=== PATIENT | male | born 1990 | race African-American/Black ===

== ENCOUNTER 2016-10-15 14:39 | Emergency (ER) | payer SELFPAY ==
[~2016-10-15] VITALS: Ht 177.8 cm; Wt 68.0 kg
[2016-10-15] MEDS ORDERED: IV NORMAL SALINE 1000ML BAG 1,000 ML IV ONE (15:00)
[2016-10-15 15:10] LABS: BASO % 1 % (0-3); EOS % 4 % (0-3); HEMATOCRIT 49.3 % (39.0-53.0); HEMOGLOBIN 16.6 g/dL (13.0-17.5); LYMPH # 1.5 x10^3/uL (1.0-4.8); LYMPH % 29 % (24-48); MEAN CORPUSCULAR HEMOGLOBIN 32 pg (25-35); MEAN CORPUSCULAR HGB CONC 34 g/dL (31-37); MEAN CORPUSCULAR VOLUME 95 fL (79-100); MONO % 12 % (0-9); NEUT % 55 % (31-73); PLATELET COUNT 239 x10^3/uL (140-400); RED BLOOD COUNT 5.19 x10^6/uL (4.30-5.70); RED CELL DISTRIBUTION WIDTH 13.6 % (11.5-14.5); WHITE BLOOD COUNT 5.2 x10^3/uL (4.0-11.0)
[2016-10-15] MEDS ORDERED: ONDANSETRON PF 4 MG/2 ML VIAL. IV ONE (15:15)
[2016-10-15] MEDS ORDERED: FAMOTIDINE 20 MG/2 ML VIAL IVP ONE (15:15)
[2016-10-15] MEDS ORDERED: KETOROLAC TROMETHAMINE 30 MG/ML INJ. IV ONE (15:15)
--- NOTE | 2016-10-15 15:20 | PHYS DOC ---
Past Medical History Past Medical History: No Pertinent History Past Surgical History: No Surgical History Alcohol Use: Rarely Drug Use: None Adult General Chief Complaint Chief Complaint: NAUSEA/VOMITING/DIARRHA HPI HPI Patient is a 26-year-old man who presents with Vomiting for 4 days and tiredness. Patient denies any diarrhea. Denies any hematemesis. Review of Systems Review of Systems Constitutional: Denies fever or chills [] Eyes: Denies change in visual acuity, redness, or eye pain [] HENT: Denies nasal congestion or sore throat [] Respiratory: Denies cough or shortness of breath [] Cardiovascular: No additional information not addressed in HPI [] GI: vomiting : Denies dysuria or hematuria [] Musculoskeletal: Denies back pain or joint pain [] Integument: Denies rash or skin lesions [] Neurologic: Denies headache, focal weakness or sensory changes [] Endocrine: Denies polyuria or polydipsia [] Current Medications Current Medications Current Medications Medications (Trade) Dose Ordered Sig/Bhavna Start Time Stop Time Status Last Admin Dose Admin Famotidine (Pepcid) 20 mg 1X ONCE 10/15/16 15:15 10/15/16 15:16 DC 10/15/16 15:27 20 MG Ketorolac Tromethamine (Toradol) 30 mg 1X ONCE 10/15/16 15:15 10/15/16 15:16 DC 10/15/16 15:27 30 MG Ondansetron HCl (Zofran) 4 mg 1X ONCE 10/15/16 15:15 10/15/16 15:16 DC 10/15/16 15:27 4 MG Sodium Chloride 1,000 ml @ 1,000 mls/hr 1X ONCE 10/15/16 15:00 10/15/16 15:59 DC 10/15/16 15:26 1,000 MLS/HR Allergies Allergies Allergies Coded Allergies Type Severity Reaction Last Updated Verified doxycycline Allergy Intermediate Nausea and Vomiting 04/23/14 Yes Physical Exam Physical Exam Constitutional: Well developed, well nourished, no acute distress, non-toxic appearance. [] HENT: Normocephalic, atraumatic, bilateral external ears normal, oropharynx moist, no oral exudates, nose normal. [] Eyes: PERRLA, EOMI, conjunctiva normal, no discharge. [] Neck: Normal range of motion, no tenderness, supple, no stridor. [] Cardiovascular:Heart rate regular rhythm, no murmur [] Lungs & Thorax: Bilateral breath sounds clear to auscultation [] Abdomen: Bowel sounds normal, soft, no tenderness, no masses, no pulsatile masses. [] Skin: Warm, dry, no erythema, no rash. [] Back: No tenderness, no CVA tenderness. [] Extremities: No tenderness, no cyanosis, no clubbing, ROM intact, no edema. [] Neurologic: Alert and oriented X 3, normal motor function, normal sensory function, no focal deficits noted. [] Psychologic: Affect normal, judgement normal, mood normal. [] Current Patient Data Vital Signs Vital Signs Date Time Temp Pulse Resp B/P (MAP) Pulse Ox O2 Delivery O2 Flow Rate FiO2 10/15/16 14:40 98.3 75 16 140/93 (109) 99 Room Air 98.3 Lab Values Laboratory Tests Test 10/15/16 15:00 10/15/16 16:38 White Blood Count 5.2 x10^3/uL (4.0-11.0) Red Blood Count 5.19 x10^6/uL (4.30-5.70) Hemoglobin 16.6 g/dL (13.0-17.5) Hematocrit 49.3 % (39.0-53.0) Mean Corpuscular Volume 95 fL (79-100) Mean Corpuscular Hemoglobin 32 pg (25-35) Mean Corpuscular Hemoglobin Concent 34 g/dL (31-37) Red Cell Distribution Width 13.6 % (11.5-14.5) Platelet Count 239 x10^3/uL (140-400) Neutrophils (%) (Auto) 55 % (31-73) Lymphocytes (%) (Auto) 29 % (24-48) Monocytes (%) (Auto) 12 % (0-9) H Eosinophils (%) (Auto) 4 % (0-3) H Basophils (%) (Auto) 1 % (0-3) Neutrophils # (Auto) 2.9 x10^3uL (1.8-7.7) Lymphocytes # (Auto) 1.5 x10^3/uL (1.0-4.8) Monocytes # (Auto) 0.6 x10^3/uL (0.0-1.1) Eosinophils # (Auto) 0.2 x10^3/uL (0.0-0.7) Basophils # (Auto) 0.0 x10^3/uL (0.0-0.2) Platelet Estimate Adequate (ADEQUATE) Large Platelets Occ Giant Platelets Occ Polychromasia Slight Ovalocytes Occ Sodium Level 137 mmol/L (136-145) Potassium Level 4.0 mmol/L (3.5-5.1) Chloride Level 99 mmol/L (98-107) Carbon Dioxide Level 28 mmol/L (21-32) Anion Gap 10 (6-14) Blood Urea Nitrogen 14 mg/dL (8-26) Creatinine 1.2 mg/dL (0.7-1.3) Estimated GFR (Cockcroft-Gault) 89.3 BUN/Creatinine Ratio 12 (6-20) Glucose Level 103 mg/dL (70-99) H Calcium Level 9.7 mg/dL (8.5-10.1) Total Bilirubin 0.7 mg/dL (0.2-1.0) Aspartate Amino Transferase (AST) 17 U/L (15-37) Alanine Aminotransferase (ALT) 15 U/L (16-63) L Alkaline Phosphatase 94 U/L (46-116) Creatine Kinase 99 U/L (39-308) Myoglobin 31 ng/mL (16-96) Total Protein 8.7 g/dL (6.4-8.2) H Albumin 4.4 g/dL (3.4-5.0) Albumin/Globulin Ratio 1.0 (1.0-1.7) Lipase 67 U/L (73-393) L Ethyl Alcohol Level < 10 mg/dL (0-10) Urine Opiates Screen Neg (NEG) Urine Methadone Screen Neg (NEG) Urine Barbiturates Neg (NEG) Urine Phencyclidine Screen Neg (NEG) Urine Amphetamine/Methamphetamine Neg (NEG) Urine Benzodiazepines Screen Pos (NEG) Urine Cocaine Screen Pos (NEG) Urine Cannabinoids Screen Pos (NEG) Urine Ethyl Alcohol Neg (NEG) Laboratory Tests 10/15/16 15:00 Laboratory Tests 10/15/16 15:00 EKG EKG [] Radiology/Procedures Radiology/Procedures [] Course & Med Decision Making Course & Med Decision Making Pertinent Labs and Imaging studies reviewed. (See chart for details) This is a 26-year-old male who presents with nausea and fatigue for 4 days. CBC CMP lipase with no acute findings. Drug screen positive for benzodiazepine cocaine and marijuana. Patient was discharged with instructions to follow-up with his own doctor. Recommended help for drug abuse. Discharged with Zofran. Soto Disclaimer Brittany Disclaimer This electronic medical record was generated, in whole or in part, using a voice recognition dictation system. Departure Departure Impression: Primary Impression: Nausea and vomiting Additional Impression: Drug abuse Disposition: 01 HOME, SELF-CARE Condition: STABLE Referrals: NO PCP (PCP) follow up with [facility] for drug abuse Patient Instructions: Drug Abuse, FAQs, Nausea and Vomiting Additional Instructions: You were seen for nausea and vomiting and fatigue. Urine tox screen is positive for multiple medications including benzodiazepines cocaine and marijuana. This can cause is some your symptoms. Consider getting help for drug use. Follow-up with your doctor or [facility] for drug problem. Scripts Ondansetron (ZOFRAN ODT) 4 Mg Tab.rapdis 1 TAB SL Q8HRS, #15 TAB Prov: SHAKIRA SANTOYO APRN 10/15/16 Problem Qualifiers Primary Impression: Nausea and vomiting Vomiting type: unspecified Vomiting Intractability: unspecified Qualified Codes: R11.2 - Nausea with vomiting, unspecified SHAKIRA SANTOYO APRN Oct 15, 2016 15:20
[2016-10-15 15:24] LABS: CALCIUM 9.7 mg/dL (8.5-10.1); CREATININE 1.2 mg/dL (0.7-1.3); GFR 89.3
[2016-10-15 15:37] LABS: ALBUMIN 4.4 g/dL (3.4-5.0); TOTAL BILIRUBIN 0.7 mg/dL (0.2-1.0); TOTAL PROTEIN 8.7 g/dL (6.4-8.2)
[2016-10-15 16:46] LABS: BILIRUBIN,URINE SMALL (NEG); GLUCOSE,URINE NEGATIVE (NEG); NITRITE,URINE NEGATIVE (NEG); PH,URINE 6.5; PROTEIN,URINE 30 mg/dL (NEG-TRACE)
[2016-10-15 16:50] VITALS: BP 112/66
[2016-10-15 16:52] LABS: BARBITURATES NEG (NEG); BENZODIAZEPINES POS (NEG); CANNABINOIDS POS (NEG); COCAINE POS (NEG); METHADONE NEG (NEG); OPIATES NEG (NEG); PHENCYCLIDINE NEG (NEG)
[2016-10-15 16:54] LABS: OVALOCYTES OCC; PLT ESTIMATE ADEQUATE (ADEQUATE); POLYCHROMASIA SLIGHT
[2016-10-15] MEDS ORDERED: ONDA4TAB10 SL (17:09)
[2016-10-15 17:23] LABS: SQUAMOUS EPITHELIAL CELL,UR OCC /LPF; WBC,URINE OCC /HPF (0-4)
[2016-10-15 17:25] LABS: RBC,URINE 0 /HPF (0-2)
[2016-10-15 17:26] LABS: BACTERIA,URINE FEW /HPF (0-FEW)
== END 2016-10-15 17:20 | disposition home or self-care (01) ==
LOC: ER 14:39
DX: R11.2 Nausea with vomiting, unspecified (principal); F14.10 Cocaine abuse, uncomplicated; F19.10 Other psychoactive substance abuse, uncomplicated; F12.10 Cannabis abuse, uncomplicated; Z88.1 Allergy status to other antibiotic agents
CPT/HCPCS: 36415; 80053; 80305; 80320; 81001; 82550; 83690; 83874; 85007; 85027; 96361; 96374; 96375; 99284; J1885; J2405; J7030; S0028; G0480; G0481

== ENCOUNTER 2017-01-19 13:23 | Emergency (ER) | payer SELFPAY ==
[~2017-01-19] VITALS: Ht 177.8 cm; Wt 68.0 kg
[~2017-01-19 13:23] MED LIST: ONDA4TAB10 SL
[2017-01-19 13:29] VITALS: BP 122/58
--- NOTE | 2017-01-19 14:02 | PHYS DOC ---
Past Medical History Past Medical History: No Pertinent History Past Surgical History: No Surgical History Alcohol Use: Occasionally Drug Use: Marijuana Adult General Chief Complaint Chief Complaint: SORE THROAT HPI HPI Patient is a 26 year old AA male presents with sore throat, lymphadenopathy, for 5 days. Patient denies fever, chills, dysphagia, trismus, drooling and hoarseness. No Review of Systems Review of Systems Review of symptoms as per history of present illness. All other review symptoms are negative. Allergies Allergies Allergies Coded Allergies Type Severity Reaction Last Updated Verified doxycycline Allergy Intermediate Nausea and Vomiting 01/19/17 Yes Physical Exam Physical Exam I Gen.: No acute distress HENT: Normocephalic H medical using good shape and position, nose midline, mouth , moist mucous membranes, posterior oropharynx, tonsils 2+, with cellulitis and foul-smelling breath. No discrete abscess or peritonsillar exudate. Uvula midline. No drooling trismus or hoarseness. Neck: supple, submandibular lymphadenopathy. Chest: Respirations nonlabored, breath sounds clear. Extremities, no deformities Skin: Appropriate for ethnicity, no rash appreciated. Neurologic: Spontaneous coordinated movement of all 4 extremities, good muscle tone. Current Patient Data Vital Signs Vital Signs Date Time Temp Pulse Resp B/P (MAP) Pulse Ox O2 Delivery O2 Flow Rate FiO2 01/19/17 13:29 98.1 85 18 122/58 (79) 99 Room Air 98.1 EKG EKG [] Radiology/Procedures Radiology/Procedures [] Course & Med Decision Making Course & Med Decision Making Pertinent Labs and Imaging studies reviewed. (See chart for details) [Clinical strep pharyngitis without evidence of peritonsillar abscess. Will treat empirically with PCP follow-up. Return precautions reviewed. Patient verbalizes understanding agreement discharge instructions prior to departure] Dragon Disclaimer Dragon Disclaimer This electronic medical record was generated, in whole or in part, using a voice recognition dictation system. Departure Departure Impression: Primary Impression: Strep pharyngitis Disposition: 01 HOME, SELF-CARE Condition: GOOD Patient Instructions: Strep Throat, [id number] Additional Instructions: Please complete full course of antibiotics and take ibuprofen for pain and hydrocodone as needed for additional relief. Follow up with your PCP for reevaluation in 3-5 days symptoms persist. Return to the ED if new or worsening symptoms ELLYN MENENDEZ DO Jan 19, 2017 14:02
== END 2017-01-19 13:52 | disposition home or self-care (01) ==
LOC: ER 13:23
DX: J02.0 Streptococcal pharyngitis (principal); Z88.1 Allergy status to other antibiotic agents
CPT/HCPCS: 99283

== ENCOUNTER 2018-01-19 17:10 | Emergency (ER) | payer SELFPAY ==
[~2018-01-19] VITALS: Ht 180.3 cm; Wt 68.0 kg
[2018-01-19] MEDS: IV NORMAL SALINE 1000ML BAG 1,000 ML IV ONE (20:06)
[2018-01-19] MEDS ORDERED: CONTRAST GIVEN. MC PRN (20:15)
[2018-01-19 20:25] LABS: BASO # 0.1 x10^3/uL (0.0-0.2); BASO % 2 % (0-3); EOS # 0.7 x10^3/uL (0.0-0.7); EOS % 14 % (0-3); HEMATOCRIT 43.9 % (39.0-53.0); LYMPH # 1.9 x10^3/uL (1.0-4.8); LYMPH % 39 % (24-48); MEAN CORPUSCULAR HEMOGLOBIN 33 pg (25-35); MEAN CORPUSCULAR HGB CONC 34 g/dL (31-37); MEAN CORPUSCULAR VOLUME 96 fL (79-100); MONO # 0.8 x10^3/uL (0.0-1.1); MONO % 16 % (0-9); NEUT # 1.5 x10^3uL (1.8-7.7); NEUT % 30 % (31-73); PLATELET COUNT 235 x10^3/uL (140-400); RED BLOOD COUNT 4.56 x10^6/uL (4.30-5.70); RED CELL DISTRIBUTION WIDTH 14.3 % (11.5-14.5)
[2018-01-19 20:37] LABS: CALCIUM 9.1 mg/dL (8.5-10.1); CREATININE 1.1 mg/dL (0.7-1.3); GFR 97.9; POTASSIUM 4.2 mmol/L (3.5-5.1)
[2018-01-19 20:39] LABS: C-REACTIVE PROTEIN 1.4 mg/L (0-3.3)
[2018-01-19] MEDS: IOHEXOL 300 MG/ML 100ML VIAL. IV ONE (20:50)
[2018-01-19 21:08] LABS: PLT ESTIMATE ADEQUATE (ADEQUATE)
--- NOTE | 2018-01-19 21:11 | RAD ---
CT SOFT TISSUE NECK W/CONTRAST Indication: Right mandibular swelling for one month Technique: Postcontrast CT imaging was performed of the neck, multiplanar reconstruction images submitted. One or more of the following individualized dose reduction techniques were utilized for this examination: 1. Automated exposure control 2. Adjustment of the mA and/or kV according to patient size 3. Use of iterative reconstruction technique. Contrast: 70 cc Omnipaque 300 Comparison: None Findings: There is preservation of the parapharyngeal fat planes. No discrete abnormal fluid collection/abscess identified is identified of the neck. There is dental caries involving most posterior right mandibular tooth. No aggressive bone distraction is identified. There is no abnormality of the thyroid gland. There is some patchy ethmoid air cell mucosal thickening greater anteriorly on the right. Mastoid air cells are aerated. There is focus of hypodensity along the anterior margin of the right submandibular gland, somewhat difficult to distinguish intervening fat plane between submandibular gland. Focus of hypodensity measured about 2.3 cm a 3.4 cm AP by 2.2 cm transverse. There are some other nodes on the right with the largest seen these about 1 cm short axis dimension. IMPRESSION: 1. There is dental caries involving most posterior right mandibular tooth. 2. There is area of hypodensity along the anterior margin of the right submandibular gland, somewhat difficult to distinguish intervening fat plane. This may be due to component of enlarged submandibular gland such as related to sialoadenitis or could be due to enlarged adjacent mass/node. No discrete abscess is identified. Electronically signed by: Miguel Hoover MD (01/19/2018 9:08 PM) [facility]
[2018-01-19] MEDS: MORPHINE SULFATE 10 MG/ML VIAL. IV ONE (22:39)
[2018-01-19] MEDS ORDERED: HYDR-971 PO (22:57)
[2018-01-19] MEDS ORDERED: AMOX500T PO (22:57)
--- NOTE | 2018-01-19 22:58 | PHYS DOC ---
Past Medical History Past Medical History: No Pertinent History Past Surgical History: No Surgical History Alcohol Use: Occasionally Drug Use: Marijuana Adult General Chief Complaint Chief Complaint: FACE PAIN HPI HPI Patient is a 27 year old male with no significant hx who presents with a mass on the right mandible that he has had for 1 year. Patient denies any fever. He states he has history of smoking. Review of Systems Review of Systems Constitutional: Denies fever or chills [] Eyes: Denies change in visual acuity, redness, or eye pain [] HENT: Reports mass on the right mandible. Denies nasal congestion or sore throat [] Respiratory: Denies cough or shortness of breath [] Cardiovascular: No additional information not addressed in HPI [] GI: Denies abdominal pain, nausea, vomiting, bloody stools or diarrhea [] : Denies dysuria or hematuria [] Musculoskeletal: Denies back pain or joint pain [] Integument: Denies rash or skin lesions [] Neurologic: Denies headache, focal weakness or sensory changes [] All other systems were reviewed and found to be within normal limits, except as documented in this note. Current Medications Current Medications Current Medications Medications (Trade) Dose Ordered Sig/Bhavna Start Time Stop Time Status Last Admin Dose Admin Info (CONTRAST GIVEN -- Rx MONITORING) 1 each PRN DAILY PRN 01/19/18 20:15 01/21/18 20:14 Iohexol (Omnipaque 300 Mg/ml) 75 ml 1X ONCE 01/19/18 20:15 01/19/18 20:16 DC 01/19/18 20:50 75 ML Morphine Sulfate (Morphine Sulfate) 5 mg 1X ONCE 01/19/18 22:30 01/19/18 22:31 DC 01/19/18 22:39 5 MG Sodium Chloride 1,000 ml @ 1,000 mls/hr 1X ONCE 01/19/18 19:30 01/19/18 20:29 DC 01/19/18 20:06 1,000 MLS/HR Allergies Allergies Allergies Coded Allergies Type Severity Reaction Last Updated Verified doxycycline Allergy Intermediate Nausea and Vomiting 01/19/17 Yes Physical Exam Physical Exam Constitutional: Well developed, well nourished, no acute distress, non-toxic appearance. [] HENT: Normocephalic, atraumatic, bilateral external ears normal, oropharynx moist, no oral exudates, nose normal. [] Right mandible with a mildly indurated area approximately 2 x 3 cm. The area is firm tender to touch. Scattered dental caries noted. No dental abscess. Eyes: PERRLA, EOMI, conjunctiva normal, no discharge. [] Neck: Normal range of motion, no tenderness, supple, no stridor. [] Cardiovascular:Heart rate regular rhythm, no murmur [] Lungs & Thorax: Bilateral breath sounds clear to auscultation [] Abdomen: Bowel sounds normal, soft, no tenderness, no masses, no pulsatile masses. [] Skin: Warm, dry, no erythema, no rash. [] Back: No tenderness, no CVA tenderness. [] Extremities: No tenderness, no cyanosis, no clubbing, ROM intact, no edema. [] Neurologic: Alert and oriented X 3, normal motor function, normal sensory function, no focal deficits noted. [] Psychologic: Affect normal, judgement normal, mood normal. [] Current Patient Data Vital Signs Vital Signs Date Time Temp Pulse Resp B/P (MAP) Pulse Ox O2 Delivery O2 Flow Rate FiO2 01/19/18 22:39 98 Room Air 01/19/18 19:02 98.1 74 18 143/63 (89) 98.1 Lab Values Laboratory Tests Test 01/19/18 20:01 White Blood Count 5.0 x10^3/uL (4.0-11.0) Red Blood Count 4.56 x10^6/uL (4.30-5.70) Hemoglobin 15.0 g/dL (13.0-17.5) Hematocrit 43.9 % (39.0-53.0) Mean Corpuscular Volume 96 fL (79-100) Mean Corpuscular Hemoglobin 33 pg (25-35) Mean Corpuscular Hemoglobin Concent 34 g/dL (31-37) Red Cell Distribution Width 14.3 % (11.5-14.5) Platelet Count 235 x10^3/uL (140-400) Neutrophils (%) (Auto) 30 % (31-73) L Lymphocytes (%) (Auto) 39 % (24-48) Monocytes (%) (Auto) 16 % (0-9) H Eosinophils (%) (Auto) 14 % (0-3) H Basophils (%) (Auto) 2 % (0-3) Neutrophils # (Auto) 1.5 x10^3uL (1.8-7.7) L Lymphocytes # (Auto) 1.9 x10^3/uL (1.0-4.8) Monocytes # (Auto) 0.8 x10^3/uL (0.0-1.1) Eosinophils # (Auto) 0.7 x10^3/uL (0.0-0.7) Basophils # (Auto) 0.1 x10^3/uL (0.0-0.2) Platelet Estimate Adequate (ADEQUATE) Large Platelets Mod Giant Platelets Occ Erythrocyte Sedimentation Rate 2 (0-15) Sodium Level 140 mmol/L (136-145) Potassium Level 4.2 mmol/L (3.5-5.1) Chloride Level 103 mmol/L (98-107) Carbon Dioxide Level 27 mmol/L (21-32) Anion Gap 10 (6-14) Blood Urea Nitrogen 8 mg/dL (8-26) Creatinine 1.1 mg/dL (0.7-1.3) Estimated GFR (Cockcroft-Gault) 97.9 Glucose Level 91 mg/dL (70-99) Calcium Level 9.1 mg/dL (8.5-10.1) C-Reactive Protein, Quantitative 1.4 mg/L (0-3.3) Laboratory Tests 01/19/18 20:01 Laboratory Tests 01/19/18 20:01 EKG EKG [] Radiology/Procedures Radiology/Procedures []PROCEDURE: CT SOFT TISSUE NECK W/CONTRAST CT SOFT TISSUE NECK W/CONTRAST Indication: Right mandibular swelling for one month Technique: Postcontrast CT imaging was performed of the neck, multiplanar reconstruction images submitted. One or more of the following individualized dose reduction techniques were utilized for this examination: 1. Automated exposure control 2. Adjustment of the mA and/or kV according to patient size 3. Use of iterative reconstruction technique. Contrast: 70 cc Omnipaque 300 Comparison: None Findings: There is preservation of the parapharyngeal fat planes. No discrete abnormal fluid collection/abscess identified is identified of the neck. There is dental caries involving most posterior right mandibular tooth. No aggressive bone distraction is identified. There is no abnormality of the thyroid gland. There is some patchy ethmoid air cell mucosal thickening greater anteriorly on the right. Mastoid air cells are aerated. There is focus of hypodensity along the anterior margin of the right submandibular gland, somewhat difficult to distinguish intervening fat plane between submandibular gland. Focus of hypodensity measured about 2.3 cm a 3.4 cm AP by 2.2 cm transverse. There are some other nodes on the right with the largest seen these about 1 cm short axis dimension. IMPRESSION: 1. There is dental caries involving most posterior right mandibular tooth. 2. There is area of hypodensity along the anterior margin of the right submandibular gland, somewhat difficult to distinguish intervening fat plane. This may be due to component of enlarged submandibular gland such as related to sialoadenitis or could be due to enlarged adjacent mass/node. No discrete abscess is identified. Electronically signed by: Dani Vera MD (01/19/2018 9:08 PM) [facility] DICTATED and SIGNED BY: DANI VERA MD DATE: 01/19/18 2100 Course & Med Decision Making Course & Med Decision Making Pertinent Labs and Imaging studies reviewed. (See chart for details) Patient has a mass on the right mandibular that he has had for 1 year. He also has scattered dental caries. CBC within normal WBC, BMP with no acute findings. CT of the neck soft tissue was noted for dental caries to posterior right mandible,there is area of hypodensity along the anterior margin of the right submandibular gland, somewhat difficult to distinguish intervening fat plane. This may be due to component of enlarged submandibular gland such as related to sialoadenitis or could be due to enlarged adjacent mass/node. No discrete abscess is identified. I highly suspect this patient has a mass/node as noted in the CT. He was provided ENT for follow-up. We also encouraged him to follow-up with her dentist. Discharged with amoxicillin. Encouraged to consider smoking cessation. Dragon Disclaimer Dragon Disclaimer This electronic medical record was generated, in whole or in part, using a voice recognition dictation system. Departure Departure Impression: Primary Impression: Dental caries Additional Impressions: Mass of mandible Smoking addiction Disposition: 01 HOME, SELF-CARE Condition: STABLE Referrals: NO PCP (PCP) KOBI ORTEGA MD follow up in 1-2 weeks Patient Instructions: Dental Caries, Smoking Cessation, Tips For Success Additional Instructions: You have a mass on your right mandible, you also have dental caries, follow-up with the provided ENT specialist as well as dentist in 1-2 weeks. Complete your antibiotics. Scripts Hydrocodone/Apap 5-325 (NORCO 5-325 TABLET) 1 Each Tablet 1 TAB PO Q6HRS, #10 TAB Prov: SHAKIRA SANTOYO APRN 01/19/18 Amoxicillin (AMOXICILLIN) 500 Mg Tablet 1 TAB PO BID, #20 TAB Prov: SHAKIRA SANTOYO APRN 01/19/18 Problem Qualifiers SHAKIRA SANTOYO APRN Jan 19, 2018 22:58
[2018-01-19 23:20] VITALS: BP 139/76
[2018-01-20] MEDS ORDERED: IOHEXOL 300 MG/ML 100ML VIAL. ONE (01:08)
== END 2018-01-19 23:21 | disposition home or self-care (01) ==
LOC: ER 17:10
DX: K02.9 Dental caries, unspecified (principal); M27.8 Other specified diseases of jaws; F17.200 Nicotine dependence, unspecified, uncomplicated; Z88.1 Allergy status to other antibiotic agents
CPT/HCPCS: 36415; 70491; 80048; 85025; 85651; 86140; 96374; 99285; J2270; J7030; Q9967

== ENCOUNTER 2018-05-17 00:21 | Emergency (ER) | payer SELFPAY ==
[~2018-05-17] VITALS: Ht 180.3 cm; Wt 68.0 kg
[~2018-05-17 00:21] MED LIST changes: +AMOX500T PO; +HYDR-3164 PO
[2018-05-17 00:30] VITALS: BP 164/93
[2018-05-17] MEDS ORDERED: HYDR-2761 PO (00:57)
[2018-05-17] MEDS ORDERED: HYDROcodone/APAP 10/325 1 TAB TABLET PO ONE (01:00)
--- NOTE | 2018-05-17 02:45 | RAD ---
Examination: PA view the chest with right RIBS HISTORY: History of pain in the right RIBS COMPARISON: None available FINDINGS: The cardiomediastinal silhouette grossly appears unremarkable. There is no acute infiltrate or visualized thorax identified. No evidence of displaced right rib fracture. IMPRESSION: 1. No acute cardiopulmonary findings. 2. No evidence of displaced right rib fracture. Electronically signed by: Nitin Mckinley MD (05/17/2018 2:40 AM) [id number]
--- NOTE | 2018-05-17 05:06 | PHYS DOC ---
Past Medical History Past Medical History: No Pertinent History Past Surgical History: No Surgical History Additional Information: 1ppd Alcohol Use: None Drug Use: Marijuana Adult General Chief Complaint Chief Complaint: RIB PAIN HPI HPI Patient is a 27 year old [place] male who presents with right posterior rib pain, radiating to anterior chest for the past 4 days. Denies injury. Pain reproduces palpation, movement and deep breathing. No fever, chills, nausea vomiting or sweats. Denies upper abdominal pain. Symptoms pearly controlled. No medications or therapy sticking prior to ED arrival. No leg pain or swelling. Reports constipation. No history of peptic ulcer disease, gallbladder disease. No other acute symptoms or complaints. Additional history obtained from this significant other.[] Review of Systems Review of Systems Review symptoms as per history of present illness. All other review symptoms are negative. All other systems were reviewed and found to be within normal limits, except as documented in this note. Current Medications Current Medications Current Medications Medications (Trade) Dose Ordered Sig/Bhavna Start Time Stop Time Status Last Admin Dose Admin Acetaminophen/ Hydrocodone Bitart (Lortab 10/325) 1 tab 1X ONCE 05/17/18 01:00 05/17/18 01:01 DC 05/17/18 00:59 1 TAB Allergies Allergies Allergies Coded Allergies Type Severity Reaction Last Updated Verified doxycycline Allergy Intermediate Nausea and Vomiting 01/19/17 Yes Physical Exam Physical Exam Constitutional: Well developed, well nourished, no acute distress, non-toxic appearance. [] HENT: Normocephalic, atraumatic, bilateral external ears normal, oropharynx moist, no oral exudates, nose normal. [] Eyes: PERRLA, EOMI, conjunctiva normal, no discharge. [] Neck: Normal range of motion, no tenderness, supple, no stridor. [] Cardiovascular:Heart rate regular rhythm, no murmur [] Lungs & Thorax: Bilateral breath sounds clear to auscultation, R posterior lateral rib pain, tenderness reproducing symptoms [] Abdomen: Bowel sounds normal, soft, no tenderness. [] Skin: Warm, dry, no erythema, no rash. [] Back: Lateral. [] Extremities: No tenderness. [] Neurologic: Alert and oriented X 3, normal motor function, normal sensory function, no focal deficits noted. [] Psychologic: Affect normal, judgement normal, mood normal. [] Current Patient Data Vital Signs Vital Signs Date Time Temp Pulse Resp B/P (MAP) Pulse Ox O2 Delivery O2 Flow Rate FiO2 05/17/18 00:59 24 99 Room Air 05/17/18 00:30 98.0 89 164/93 (116) 98.0 EKG EKG [] Radiology/Procedures Radiology/Procedures [Chest x-ray/right rib series. No obvious displaced fracture or acute cardiopulmonary disease on preliminary ED review] Course & Med Decision Making Course & Med Decision Making Pertinent Labs and Imaging studies reviewed. (See chart for details) [Atypical chest pain reproduces on exam. No abdominal pain, tenderness. Vital signs stable. Chest x-ray/rib series negative. Suspect musculoskeletal pain. We' ll treat supportively. Patient also instructed to follow-up with PCP for reevaluation.] Dragon Disclaimer Dragon Disclaimer This electronic medical record was generated, in whole or in part, using a voice recognition dictation system. Departure Departure Impression: Primary Impression: Rib pain on right side Disposition: HOME, SELF-CARE Condition: GOOD Patient Instructions: Chest Wall Pain, [id number] Additional Instructions: You were evaluated in the ED for right sided chest wall pain. Xrays were obtained and are nondiagnostic. Please take ibuprofen for pain and hydrocodone as needed for additional pain relief. Follow up with your PCP for re- evaluation in 2-3 days if symptoms persist. Return to the ED if new or worsening symptoms. Scripts Hydrocodone Bit/Acetaminophen (HYDROCODONE-APAP 5-325 ) 1 Tab Tablet 1 TAB PO PRN Q6HRS PRN for PAIN for 3 Days, #10 TAB 0 Refills Prov: ELLYN MENENDEZ DO 05/17/18 ELLYN MENENDEZ DO May 17, 2018 05:06
== END 2018-05-17 01:10 | disposition home or self-care (01) ==
LOC: ER 00:21
DX: R07.81 Pleurodynia (principal); K59.00 Constipation, unspecified; F17.200 Nicotine dependence, unspecified, uncomplicated; Z88.1 Allergy status to other antibiotic agents
CPT/HCPCS: 71101; 99283

== ENCOUNTER 2018-12-24 16:27 | Emergency (ER) | payer SELFPAY ==
[~2018-12-24] VITALS: Ht 180.3 cm; Wt 69.4 kg
[~2018-12-24 16:27] MED LIST changes: +HYDR-2761 PO
[2018-12-24 16:52] VITALS: BP 148/71
[2018-12-24] MEDS ORDERED: AZITHROMYCIN 250 MG TABLET. PO ONE (17:30)
[2018-12-24] MEDS ORDERED: cefTRIAXone IM 250 MG VIAL IM ONE (17:30)
--- NOTE | 2018-12-24 17:34 | PHYS DOC ---
Past Medical History Past Medical History: No Pertinent History Past Surgical History: No Surgical History Alcohol Use: None Drug Use: Marijuana Adult General Chief Complaint Chief Complaint: PENIS PROBLEM HPI HPI Patient is a 28 year old [male] who presents with [penile discharge. Patient reports for the last 2 days, he has noticed some penile discharge, reports he has had some yellow/yellowish discharge, some discomfort when he urinates. States he feels like there is something inside. States he has had 2 sexual partners recently, believes has been sexual partner has had some discharge recently, but not recently been tested as far as he knows.] Review of Systems Review of Systems Constitutional: Denies fever or chills [] GI: Denies abdominal pain, nausea, vomiting, bloody stools or diarrhea [] : Denies dysuria or hematuria does report penile discharge, discomfort when he urinates,[] Musculoskeletal: Denies back pain or joint pain [] Integument: Denies rash or skin lesions [] Neurologic: Denies headache, focal weakness or sensory changes [] Endocrine: Denies polyuria or polydipsia [] All other systems were reviewed and found to be within normal limits, except as documented in this note. Allergies Allergies Allergies Coded Allergies Type Severity Reaction Last Updated Verified doxycycline Allergy Intermediate Nausea and Vomiting 01/19/17 Yes Physical Exam Physical Exam Constitutional: Well developed, well nourished, no acute distress, non-toxic appearance. [] Abdomen: Bowel sounds normal, soft, no tenderness, no masses, no pulsatile masses. [] Skin: Warm, dry, no erythema, no rash. [] Neurologic: Alert and oriented X 3, normal motor function, normal sensory function, no focal deficits noted. [] Psychologic: Affect normal, judgement normal, mood normal. [] EKG EKG [] Radiology/Procedures Radiology/Procedures [] Course & Med Decision Making Course & Med Decision Making Pertinent Labs and Imaging studies reviewed. (See chart for details) [Discussed findings with symptoms of STD with patient, discussed importance of having partners tested as well. Discussed treatment options here. We'll obtain sample, sent for testing. Patient aware he should be tested for other STDs as well. Said he is not too worried, but understanding this may be necessary] Dragon Disclaimer Dragon Disclaimer This electronic medical record was generated, in whole or in part, using a voice recognition dictation system. Departure Departure Impression: Primary Impression: Sexually transmissible disease Disposition: HOME, SELF-CARE Condition: STABLE Referrals: NO PCP (PCP) Patient Instructions: Safe Sex, Sexually Transmitted Disease, [id number] Additional Instructions: As discussed, he should make sure partners get tested and treated at the health department. Continue this on Tuesday. May sure you're using safer sexual practices including condoms or abstinence over the next week to prevent from reinfecting yourself or other partners. WIL WALKER [employer] Dec 24, 2018 17:34
== END 2018-12-24 18:32 | disposition home or self-care (01) ==
LOC: ER 16:27
DX: A64 Unspecified sexually transmitted disease (principal); Z88.1 Allergy status to other antibiotic agents
CPT/HCPCS: 87491; 87591; 96372; 99284; J0696; Q0144

== ENCOUNTER 2019-03-21 17:22 | Emergency (ER) | payer SELFPAY ==
[~2019-03-21] VITALS: Ht 180.3 cm; Wt 75.4 kg
[2019-03-21 17:40] VITALS: BP 120/67
--- NOTE | 2019-03-21 17:51 | PHYS DOC ---
Past Medical History Past Medical History: No Pertinent History Past Surgical History: No Surgical History Alcohol Use: Rarely Drug Use: Marijuana Adult General Chief Complaint Chief Complaint: COUGH HPI HPI 28-year-old male with cough congestion for about 7 days. No alleviating factors. Has been taking [id number] medications with mild relief. All of his kids are sick. Review of systems is negative for chest pain abdominal pain fevers chills neck stiffness. All other review of systems negative. ED course: 28-year-old male presenting with upper respiratory tract infection. Outside of the influenza treatment window. Recommend [id number] supportive care to follow up with 1-2 days. Allergies Allergies Allergies Coded Allergies Type Severity Reaction Last Updated Verified doxycycline Allergy Intermediate Nausea and Vomiting 01/19/17 Yes Physical Exam Physical Exam Constitutional: Well developed, well nourished, no acute distress, non-toxic appearance. [] HENT: Normocephalic, atraumatic, bilateral external ears normal, oropharynx moist, no oral exudates, nose normal. [] Eyes: PERRLA, EOMI, conjunctiva normal, no discharge. [] Neck: Normal range of motion, no tenderness, supple, no stridor. [] Cardiovascular:Heart rate regular rhythm, no murmur [] Lungs & Thorax: Bilateral breath sounds clear to auscultation [] Abdomen: Bowel sounds normal, soft, no tenderness, no masses, no pulsatile masses. [] Skin: Warm, dry, no erythema, no rash. [] Back: No tenderness, no CVA tenderness. [] Extremities: No tenderness, no cyanosis, no clubbing, ROM intact, no edema. [] Neurologic: Alert and oriented X 3, normal motor function, normal sensory function, no focal deficits noted. [] Psychologic: Affect normal, judgement normal, mood normal. [] EKG EKG [] Radiology/Procedures Radiology/Procedures [] Course & Med Decision Making Course & Med Decision Making Pertinent Labs and Imaging studies reviewed. (See chart for details) [] Dragon Disclaimer Dragon Disclaimer This electronic medical record was generated, in whole or in part, using a voice recognition dictation system. Departure Departure Impression: Primary Impression: URI (upper respiratory infection) Disposition: HOME, SELF-CARE Condition: STABLE Referrals: NO PCP (PCP) Patient Instructions: Upper Respiratory Infection, Adult Additional Instructions: Thank you for allowing us to participate in your care today. Return to the emergency department you have any new or worsening symptoms, or if you are concerned for any reason. Return to emergency department if you have any new or concerning symptoms including but not limited to fever, chills, nausea, vomiting, intractable pain, any new rashes, chest pain, shortness of air, uncontrolled bleeding, difficulty breathing, and/or vision loss. Follow up with your primary care physician within 1-2 days. Call your Primary Doctor tomorrow and inform them of your visit today. If you do not have a primary care provider we are happy to provide you with a list of our primary care providers contact information. This condition should be evaluated by your primary care physician and any recommended consulting services for continued management within 2 days after discharge. If at any time, you are having difficulty getting into your primary care doctor or a specialist, return to the emergency department. ELYSSA JONES MD Mar 21, 2019 17:51
== END 2019-03-21 18:12 | disposition home or self-care (01) ==
LOC: ER 17:22
DX: J06.9 Acute upper respiratory infection, unspecified (principal); F12.90 Cannabis use, unspecified, uncomplicated; Z88.1 Allergy status to other antibiotic agents
CPT/HCPCS: 99281

== ENCOUNTER 2019-04-06 22:49 | Emergency (ER) | payer MEDICAID ==
[~2019-04-06] VITALS: Ht 177.8 cm; Wt 74.4 kg
[2019-04-06 22:57] VITALS: BP 151/71
--- NOTE | 2019-04-06 23:38 | PHYS DOC ---
Past Medical History Past Medical History: No Pertinent History Past Surgical History: No Surgical History Alcohol Use: Rarely Drug Use: Marijuana Adult General Chief Complaint Chief Complaint: COUGH HPI HPI 28-year-old male presents to the emergency department with complaints of cough. Patient states the cough started yesterday. He describes sweats. Does have productive cough with green sputum. Denies any nausea, vomiting, chest pain. Patient has no history of alcohol or tobacco use. He does complain of chills and sweats. Nothing makes symptoms worse, nothing makes symptoms better. Review of Systems Review of Systems Constitutional: + sweats/chills HENT: + congestion Respiratory: + productive cough, no SOB Cardiovascular: No additional information not addressed in HPI [] GI: Denies abdominal pain, nausea, vomiting, bloody stools or diarrhea [] Integument: Denies rash or skin lesions [] Neurologic: Denies headache, focal weakness or sensory changes [] All other systems were reviewed and found to be within normal limits, except as documented in this note. Allergies Allergies Allergies Coded Allergies Type Severity Reaction Last Updated Verified doxycycline Allergy Intermediate Nausea and Vomiting 01/19/17 Yes Physical Exam Physical Exam Constitutional: Well developed, well nourished, no acute distress, non-toxic appearance. [] HENT: Normocephalic, atraumatic, bilateral external ears normal, oropharynx moist, no oral exudates, nose normal. [] Eyes: PERRLA, EOMI, conjunctiva normal, no discharge. [] Neck: Normal range of motion, no tenderness, supple, no stridor. [] Cardiovascular:Heart rate regular rhythm, no murmur [] Lungs & Thorax: Bilateral breath sounds clear to auscultation [] Abdomen: Bowel sounds normal, soft, no tenderness, no masses, no pulsatile masses. [] Skin: Warm, dry, no erythema, no rash. [] Extremities: No tenderness, no edema. [] Neurologic: Alert and oriented X 3, no focal deficits noted. [] Psychologic: Affect normal, judgement normal, mood normal. [] Current Patient Data Vital Signs Vital Signs Date Time Temp Pulse Resp B/P (MAP) Pulse Ox O2 Delivery O2 Flow Rate FiO2 04/06/19 22:57 98.6 113 22 151/71 (97) 99 Room Air 98.6 Lab Values Laboratory Tests Test 04/06/19 23:10 Influenza Type A Antigen Negative (NEGATIVE) Influenza Type B Antigen Negative (NEGATIVE) EKG EKG [] Radiology/Procedures Radiology/Procedures wet read - chest xray without acute consolidation appreciated[] Course & Med Decision Making Course & Med Decision Making Pertinent Labs and Imaging studies reviewed. (See chart for details) []28-year-old male presents to the emergency department with complaints of cough. Patient states the cough started yesterday. He describes sweats. Does have productive cough with green sputum. Denies any nausea, vomiting, chest pain. Patient has no history of alcohol or tobacco use. He does complain of chills and sweats. Nothing makes symptoms worse, nothing makes symptoms better. Chest xray reviewed Influenza negative Recommend dc home Symptomatic treatment Return precautions provided Dragon Disclaimer Dragon Disclaimer This electronic medical record was generated, in whole or in part, using a voice recognition dictation system. Departure Departure Impression: Primary Impression: Bronchitis Disposition: 01 HOME, SELF-CARE Condition: STABLE Referrals: NO PCP (PCP) Patient Instructions: Acute Bronchitis, [id number] Additional Instructions: Recommend follow up with PCP 3 - 5 days Return to the ER with worsening symptoms, intractable pain, fever, altered mental status Tylenol/Motrin as needed for pain Rx provided for amoxicillin 10 days Scripts Amoxicillin (AMOXICILLIN) 500 Mg Capsule 1 CAP PO Q8HRS for infection for 10 Days, #30 CAP Prov: EVAN PRATT MD 04/07/19 EVAN PRATT MD Apr 06, 2019 23:38
--- NOTE | 2019-04-06 23:49 | RAD ---
EXAM: CHEST 1 VIEW History: Cough COMPARISON: None available. TECHNIQUE: Single portable radiograph of the chest FINDINGS: The cardiac silhouette is unremarkable. The lungs are clear bilaterally. The costophrenic sulci are clear and well demarcated. IMPRESSION: No radiographic evidence of an acute cardiopulmonary process. Electronically signed by: Nitin Mckinley MD (04/06/2019 11:46 PM) [facility]
[2019-04-07 00:02] LABS: INFLUENZA A PATIENT NEGATIVE (NEGATIVE); INFLUENZA B PATIENT NEGATIVE (NEGATIVE)
[2019-04-07] MEDS ORDERED: AMOX500C PO (00:12)
== END 2019-04-07 00:15 | disposition home or self-care (01) ==
LOC: ER 22:49
DX: J40 Bronchitis, not specified as acute or chronic (principal); Z88.1 Allergy status to other antibiotic agents
CPT/HCPCS: 71045; 87804; 99285-25

== ENCOUNTER 2020-11-16 09:54 | Emergency (ER) | payer MEDICAID ==
[~2020-11-16] VITALS: Ht 175.3 cm; Wt 75.0 kg
[~2020-11-16 09:54] MED LIST changes: +AMOX500C PO
[2020-11-16] MEDS ORDERED: cefTRIAXone IV Push 1 GM VIAL. IVP ONE (11:45)
[2020-11-16] MEDS ORDERED: AZITHROMYCIN 250 MG TABLET. PO ONE (11:45)
[2020-11-16] MEDS ORDERED: ONDANSETRON PF 4 MG/2 ML VIAL. IVP ONE (11:45)
--- NOTE | 2020-11-16 11:50 | PHYS DOC ---
Past Medical History Past Medical History: No Pertinent History Past Surgical History: No Surgical History Smoking Status: Current Every Day Smoker Alcohol Use: Rarely Drug Use: Marijuana General Adult HPI: HPI: Patient is a 30 year old male who presents with today began having bilateral kidney pain and hematuria with yellow penile discharge. Rates his pain a 4 out of 10. He has a history of smoking and marijuana use. He is sexually active. He denies trouble urinating. He states he does have some pain with urinating. States mainly his back is aching. He denies fever, nausea, vomiting, dizziness, diarrhea, headache or body aches. Review of Systems: Review of Systems: Constitutional: Denies fever or chills. [] Eyes: Denies change in visual acuity. [] HENT: Denies nasal congestion or sore throat. [] Respiratory: Denies cough or shortness of breath. [] Cardiovascular: Denies chest pain or edema. [] GI: Denies abdominal pain, nausea, vomiting, bloody stools or diarrhea. [] : Denies dysuria. +Penile discharge. +Hematuria[] Musculoskeletal: +Bilateral back pain or denies joint pain. [] Integument: Denies rash. [] Neurologic: Denies headache, focal weakness or sensory changes. [] Endocrine: Denies polyuria or polydipsia. [] Lymphatic: Denies swollen glands. [] Psychiatric: Denies depression or anxiety. [] Heart Score: C/O Chest Pain: No Risk Factors: Risk Factors: DM, Current or recent (<one month) smoker, HTN, HLP, family history of CAD, obesity. Risk Scores: Score 0 - 3: 2.5% MACE over next 6 weeks - Discharge Home Score 4 - 6: 20.3% MACE over next 6 weeks - Admit for Clinical Observation Score 7 - 10: 72.7% MACE over next 6 weeks - Early Invasive Strategies Current Medications: Current Medications Medications (Trade) Dose Ordered Sig/Bhavna Start Time Stop Time Status Last Admin Dose Admin Azithromycin (Zithromax) 1,000 mg 1X ONCE 11/16/20 11:45 11/16/20 11:46 DC Ceftriaxone Sodium (Rocephin) 1 gm 1X ONCE 11/16/20 11:45 11/16/20 11:46 DC Ondansetron HCl (Zofran) 4 mg 1X ONCE 11/16/20 11:45 11/16/20 11:46 DC Allergies: Allergies: Allergies Coded Allergies Type Severity Reaction Last Updated Verified doxycycline Allergy Intermediate Nausea and Vomiting 01/19/17 Yes Physical Exam: PE: Constitutional: Well developed, well nourished, no acute distress, non-toxic appearance. [] HENT: Normocephalic, atraumatic, bilateral external ears normal, oropharynx moist, no oral exudates, nose normal. [] Eyes: PERRLA, EOMI, conjunctiva normal, no discharge. [] Neck: Normal range of motion, no tenderness, supple, no stridor. [] Cardiovascular:Heart rate regular rhythm, no murmur [] Lungs & Thorax: Bilateral breath sounds clear to auscultation [] Abdomen: Bowel sounds normal, soft, no tenderness, no masses, no pulsatile masses. [] Skin: Warm, dry, no erythema, no rash. [] Back: No tenderness, bilateral CVA tenderness. [] Extremities: No tenderness, no cyanosis, no clubbing, ROM intact, no edema. [] Neurologic: Alert and oriented X 3, normal motor function, normal sensory function, no focal deficits noted. [] Psychologic: Affect normal, judgement normal, mood normal. [] EKG: EKG: [] Radiology/Procedures: Radiology/Procedures: [] Impression: [facility] [address] [place], [place] [id number] IMAGING REPORT Signed PATIENT: FRANCHESCA POZO ACCOUNT: [id number] : 1990 LOCATION: ER AGE: 30 SEX: M EXAM STATUS: REG ER ORD. PHYSICIAN: BENNY ROLDAN APRN REASON: FLANK PAIN, URINARY SYMPTOMS PROCEDURE: CT ABDOMEN PELVIS WO CONTRAST EXAMINATION: CT ABDOMEN+PELVIS WO CLINICAL HISTORY: FLANK PAIN, URINARY SYMPTOMS TECHNIQUE: Non-IV contrast imaging of the abdomen and pelvis was performed using standard technique, scanning from just above the dome of the diaphragm to the symphysis pubis. Unenhanced imaging is limited for the evaluation of some intra-abdominal and pelvic pathology. CT Dose Reduction Employed: One or more of the following individualized dose reduction techniques were utilized for this examination: 1. Automated exposure control 2. Adjustment of the mA and/or kV according to patient size 3. Use of iterative reconstruction technique. COMPARISON: None FINDINGS: Prominent motion artifact throughout the exam and lack of intravenous contrast limits evaluation. Visualized lungs unremarkable. Liver, gallbladder, pancreas, spleen, and adrenal glands unremarkable. Kidneys unremarkable. No visualized urolithiasis or evidence of obstructive uropathy. Decompressed urinary bladder suboptimally evaluated. No dilated bowel. Nondilated appendix with ill-defined intraluminal hyperdensity, possibly a poorly visualized appendicolith. No evidence of abdominal aortic or iliac artery aneurysm. No evidence of acute osseous abnormality. IMPRESSION: No evidence of acute abdominopelvic abnormality on limited evaluation as described. No evidence of urolithiasis or obstructive uropathy. Decompressed urinary bladder suboptimally evaluated. Electronically signed by: Curly Baez DO (11/16/2020 12:17 PM) [facility] DICTATED and SIGNED BY: CURLY BAEZ DO DATE: 11/16/20 [id number] 0 Course & Med Decision Making: Course & Med Decision Making Pertinent Labs and Imaging studies reviewed. (See chart for details) See HPI. Ambulatory with a steady gait. Speaks in full clear sentences. Skin pink warm and dry. Slight CVA tenderness. Abdomen is soft and nontender. He denies any scrotal pain. Afebrile. He is given Rocephin and azithromycin. CT and blood work are unremarkable. Patient is allergic to doxycycline so he was treated with Rocephin and azithromycin in the ED. [] Brittany Disclaimer: Brittany Disclaimer: This electronic medical record was generated, in whole or in part, using a voice recognition dictation system. Departure Departure Impression: Primary Impression: Concern about sexually transmitted disease in male without diagnosis Disposition: 01 HOME / SELF CARE / HOMELESS Condition: STABLE Referrals: NO PCP (PCP) Patient Instructions: Sexually Transmitted Disease Additional Instructions: Follow-up with primary care provider. Make sure you tell all your sexual partners that they need to be treated to do not have sex for the next 10 days. If you start running a fever anything worsens you need to return to the emergency room. Drink plenty of fluids. BENNY ROLDAN MORPHOLOGY TEACHER Nov 16, 2020 11:50
--- NOTE | 2020-11-16 12:19 | RAD ---
EXAMINATION: CT ABDOMEN+PELVIS WO CLINICAL HISTORY: FLANK PAIN, URINARY SYMPTOMS TECHNIQUE: Non-IV contrast imaging of the abdomen and pelvis was performed using standard technique, scanning from just above the dome of the diaphragm to the symphysis pubis. Unenhanced imaging is leon ited for the evaluation of some intra-abdominal and pelvic pathology. CT Dose Reduction Employed: One or more of the following individualized dose reduction techniques wer e utilized for this examination: 1. Automated exposure control 2. Adjustment of the mA and/or kV ac cording to patient size 3. Use of iterative reconstruction technique. COMPARISON: None FINDINGS: Prominent motion artifact throughout the exam and lack of intravenous contrast limits evaluation. Visualized lungs unremarkable. Liver, gallbladder, pancreas, spleen, and adrenal glands unremarkable. Kidneys unremarkable. No visualized urolithiasis or evidence of obstructive uropathy. Decompressed ur inary bladder suboptimally evaluated. No dilated bowel. Nondilated appendix with ill-defined intraluminal hyperdensity, possibly a poorly v isualized appendicolith. No evidence of abdominal aortic or iliac artery aneurysm. No evidence of acute osseous abnormality. IMPRESSION: No evidence of acute abdominopelvic abnormality on limited evaluation as described. No evidence of urolithiasis or obstructive uropathy. Decompressed urinary bladder suboptimally evalua susana. Electronically signed by: Curly Pang DO (11/16/2020 12:17 PM) [facility]
[2020-11-16 12:26] LABS: BILIRUBIN,URINE NEGATIVE (NEG); CLARITY,URINE CLOUDY; COLOR,URINE YELLOW; NITRITE,URINE NEGATIVE (NEG); PH,URINE 7.5 (<5.0-8.0); PROTEIN,URINE 30 mg/dL (NEG-TRACE)
[2020-11-16 12:27] LABS: BACTERIA,URINE FEW /HPF (0-FEW); RBC,URINE OCC /HPF (0-2); WBC,URINE TNTC /HPF (0-4)
[2020-11-16 12:51] LABS: CALCIUM 9.3 mg/dL (8.5-10.1); CREATININE 1.1 mg/dL (0.7-1.3); GFR 95.8; POTASSIUM 4.4 mmol/L (3.5-5.1)
[2020-11-16 12:58] LABS: ALBUMIN 3.6 g/dL (3.4-5.0); ALBUMIN/GLOBULIN RATIO 0.9 (1.0-1.7); BASO # 0.1 x10^3/uL (0.0-0.2); BASO % 1 % (0-3); EOS # 0.7 x10^3/uL (0.0-0.7); EOS % 8 % (0-3); HEMATOCRIT 44.8 % (39.0-53.0); HEMOGLOBIN 15.2 g/dL (13.0-17.5); LYMPH % 23 % (24-48); MEAN CORPUSCULAR HEMOGLOBIN 32 pg (25-35); MEAN CORPUSCULAR HGB CONC 34 g/dL (31-37); MEAN CORPUSCULAR VOLUME 94 fL (79-100); MONO # 1.1 x10^3/uL (0.0-1.1); MONO % 12 % (0-9); NEUT # 5.1 x10^3/uL (1.8-7.7); NEUT % 57 % (31-73); PLATELET COUNT 254 x10^3/uL (140-400); RED BLOOD COUNT 4.76 x10^6/uL (4.30-5.70); RED CELL DISTRIBUTION WIDTH 13.8 % (11.5-14.5); TOTAL BILIRUBIN 0.6 mg/dL (0.2-1.0); TOTAL PROTEIN 7.5 g/dL (6.4-8.2); WHITE BLOOD COUNT 8.9 x10^3/uL (4.0-11.0)
[2020-11-16 13:30] VITALS: BP 121/86
== END 2020-11-16 13:30 | disposition home or self-care (01) ==
LOC: ER 09:54
DX: R36.9 Urethral discharge, unspecified (principal); Z20.2 Contact with and (suspected) exposure to infections with a predominantly sexual mode of transmission; R31.9 Hematuria, unspecified; R30.0 Dysuria; F17.200 Nicotine dependence, unspecified, uncomplicated; Z88.1 Allergy status to other antibiotic agents
CPT/HCPCS: 74176; 80053; 81001; 85025; 87086; 87491; 87591; 96374; 96375; 99284; J0696; J2405